=== PATIENT | female | born 1955 | race Caucasian/White ===

== ENCOUNTER 2017-07-27 11:59 | Emergency (ER) | payer OTHER ==
[~2017-07-27 11:59] MED LIST: NALOXONE HCL 2 MG/2 ML SYR IVP ONE
--- NOTE | 2017-07-27 12:20 | EDPHY ---
H & P Stated Complaint: headache, fatigue, HTN Time Seen by Provider: 07/27/17 12:15 HPI/ROS: HPI: This is a 61-year-old female who presents with Chief Complaint: headache, fatigue, HTN Location: heart Quality: Elevated blood pressure Duration: 23 hr prior to arrival Signs and Symptoms: no shortness of breath at rest, no shortness of breath on exertion, no cough, no chest pain, no palpitations, no lower extremity edema, no wheezing, no orthopnea, no paroxysmal nocturnal dyspnea, no fever, no injury/ trauma, no hemoptysis, no carpal pedal spasms Timing: Daily Severity: [id number] Context: Patient reports that she has noted elevated blood pressures over the last week. She was skiing with cardiology PA today and felt lightheaded and fatigue with a dull aching headache. EMS was called as the PA was concerned about cardiac event even though patient denies chest pain. Reports weaning off hormone medication x1 week and stop taking her diclofenac today. Patient reports that she was [place] the [employer] [place] and became winded, with a frontal dull aching headache which is unusual for her. She then noted her systolic blood pressure to be in the 170. Yesterday it was in the 140. Risk factors include estrogen therapy, strong family history. Mother had coronary artery disease; bypass in her 70s and 80s. Reports recent yearly physical exam with normal cholesterol lipid levels. Does not take aspirin daily. Does state that she has had a tough 2 years with family deaths; multiple surgeries. Complains of bilateral knee soreness. Modifying Factors: None Comment: ROS: see HPI Constitutional: No fever, no chills, no weight loss Eyes: No blurred vision Respiratory: No shortness of breath, no cough Cardiovascular: No chest pain, no palpitations, no lower extremity edema Gastrointestinal: No nausea, no vomiting, no diarrhea Genitourinary: No dysuria Extremities: No myalgias Neurologic: No weakness, no numbness Skin: No rashes Hematologic: No bruising, no bleeding MEDICAL/SURGICAL/SOCIAL HISTORY: Medical history: Depression, arthritis Surgical history: L CORNELL, R Shoulder surgery. Social history: . Employed. CONSTITUTIONAL: Physically fit adult female, at bedside, awake and alert, no obvious distress HEENT: Atraumatic and normocephalic, PERRL, EOMI. Nares patent; no rhinorrhea; no nasal mucosal edema. Tympanic membranes clear. Oropharynx clear, no exudate and moist pink mucosa. Airway patent. No lymphadenopathy. No meningismus. No carotid bruits. Cardiovascular: Normal S1/S2, regular rate, regular rhythm, without murmur rub or gallop. PULMONARY/CHEST: Symmetrical and nontender. Clear to auscultation bilaterally. Good air movement. No accessory muscle usage. ABDOMEN: Soft, nondistended, nontender, no rebound, no guarding, no peritoneal signs, no masses or organomegaly. No CVAT. EXTREMITIES: 2/2 pulses, strength 5/5, no deformities, no clubbing, no cyanosis or edema. NEUROLOGICAL: no focal neuro deficits. GCS 15. SKIN: Warm and dry, no erythema. no rash. Good capillary refill. Source: Patient Exam Limitations: No limitations - Personal History Current Tetanus Diphtheria and Acellular Pertussis (TDAP): Yes - Medical/Surgical History Hx Asthma: No Hx Chronic Respiratory Disease: No Hx Diabetes: No Hx Cardiac Disease: No Hx Renal Disease: No Hx Cirrhosis: No Hx Alcoholism: No Hx HIV/AIDS: No Hx Splenectomy or Spleen Trauma: No Other PMH: depression, L CORNELL, R Shoulder surgery. - Social History Smoking Status: Never smoked Constitutional: Initial Vital Signs Temperature (C) 36.7 C 07/27/17 12:09 Heart Rate 68 07/27/17 12:09 Respiratory Rate 16 07/27/17 12:09 Blood Pressure 177/97 H 07/27/17 12:09 O2 Sat (%) 98 07/27/17 12:09 O2 Delivery Mode Room Air Allergies/Adverse Reactions: phenobarbital Allergy (Verified 07/27/17 12:08) Home Medications: Medication Instructions Recorded Diclofenac Sodium 07/27/17 Lexapro 07/27/17 Prempro 0.3 mg-1.5 mg Tablet 07/27/17 Medical Decision Making - Diagnostics EKG Interpretation: 12 lead EKG: Indication: Hypertension Rhythm: Normal sinus rhythm, rate 65 beats per minute [place]: Borderline left Intervals: Normal QRS: Normal ST segments: Normal T-waves: Normal INTERPRETATION: No acute ischemic changes The 12 lead EKG was interpreted by myself and with attending. Imaging Results: Imaging Impressions Chest X-Ray 07/27/17 12:15 Impression: Normal heart size and pulmonary vascularity. ED Course/Re-evaluation: EKG, chest x-ray, labs ordered. Placed on electronic device monitor. EKG at bedside shows normal sinus rhythm, left axis deviation. No acute ischemic changes/arrhythmia. Vital signs reviewed upon arrival; blood pressure noted to be 177/97 Asymptomatic currently; gave aspirin 324 mg, Percocet and IV Ativan 0.5 mg 1305: Labs reviewed. No signs of leukocytosis/anemia/SHASTA/elevated LFTs/ electrolyte imbalance/VTE/CHF/ACS. CXR my read via PAC shows no effusion, no opacity, no pneumothorax, no widened mediastinum Heart score=3; low risk for 6 week major adverse cardiac event. 1500: second troponin negative Discussed options with patient; admit with observation versus outpatient cardiology follow-up. Patient prefers to follow up outpatient. Blood pressure at discharge was 149/92 This patient was seen under the supervision of my secondary supervising physician. I evaluated care for this patient independently. Differential Diagnosis: Chest pain including but not limited to myocardial ischemia, pulmonary embolus, chest wall pain, pleural inflammation and pulmonary infectious causes. - Data Points Laboratory Results: Laboratory Results 07/27/17 12:00 07/27/17 12:00 07/27/17 07/27/17 07/27/17 14:55 12:00 12:00 WBC RBC Hgb Hct MCV MCH MCHC RDW Plt Count MPV Neut % (Auto) Lymph % (Auto) Garden % (Auto) Eos % (Auto) Baso % (Auto) Nucleat RBC Rel Count Absolute Neuts (auto) Absolute Lymphs (auto) Absolute Monos (auto) Absolute Eos (auto) Absolute Basos (auto) Absolute Nucleated RBC Immature Gran % Immature Gran # D-Dimer 0.48 ug/mLFEU ug/mLFEU (0.00-0.50) Sodium 141 mEq/L mEq/L (135-145) Potassium 4.4 mEq/L mEq/L (3.5-5.2) Chloride 106 mEq/L mEq/L (97-110) Carbon Dioxide 26 mEq/l mEq/l (22-31) Anion Gap 9 mEq/L mEq/L (8-16) BUN 15 mg/dL mg/dL (7-23) Creatinine 0.8 mg/dL mg/dL (0.6-1.0) Estimated GFR > 60 Glucose 81 mg/dL mg/dL (70-100) Calcium 9.4 mg/dL mg/dL (8.5-10.4) Troponin I < 0.012 ng/mL ng/mL < 0.012 ng/mL ng/mL (0.000-0.034) (0.000-0.034) NT-Pro-B Natriuret Pep 207 pg/mL H pg/mL (0-125) 07/27/17 12:00 WBC 5.96 10^3/uL 10^3/uL (3.80-9.50) RBC 4.81 10^6/uL 10^6/uL (4.18-5.33) Hgb 15.1 g/dL g/dL (12.6-16.3) Hct 45.4 % % (38.0-47.0) MCV 94.4 fL fL (81.5-99.8) MCH 31.4 pg pg (27.9-34.1) MCHC 33.3 g/dL g/dL (32.4-36.7) RDW 13.4 % % (11.5-15.2) Plt Count 253 10^3/uL 10^3/uL (150-400) MPV 9.9 fL fL (8.7-11.7) Neut % (Auto) 62.4 % % (39.3-74.2) Lymph % (Auto) 30.5 % % (15.0-45.0) Garden % (Auto) 5.4 % % (4.5-13.0) Eos % (Auto) 0.8 % % (0.6-7.6) Baso % (Auto) 0.7 % % (0.3-1.7) Nucleat RBC Rel Count 0.0 % % (0.0-0.2) Absolute Neuts (auto) 3.72 10^3/uL 10^3/uL (1.70-6.50) Absolute Lymphs (auto) 1.82 10^3/uL 10^3/uL (1.00-3.00) Absolute Monos (auto) 0.32 10^3/uL 10^3/uL (0.30-0.80) Absolute Eos (auto) 0.05 10^3/uL 10^3/uL (0.03-0.40) Absolute Basos (auto) 0.04 10^3/uL 10^3/uL (0.02-0.10) Absolute Nucleated RBC 0.00 10^3/uL 10^3/uL (0-0.01) Immature Gran % 0.2 % % (0.0-1.1) Immature Gran # 0.01 10^3/uL 10^3/uL (0.00-0.10) D-Dimer Sodium Potassium Chloride Carbon Dioxide Anion Gap BUN Creatinine Estimated GFR Glucose Calcium Troponin I NT-Pro-B Natriuret Pep Medications Given: Discontinued Medications Aspirin (Aspirin) 324 mg PO EDNOW ONE Stop: 07/27/17 12:38 Last Admin: 07/27/17 12:44 Dose: 324 mg Lorazepam (Ativan Injection) 0.5 mg IVP EDNOW ONE Stop: 07/27/17 12:38 Last Admin: 07/27/17 12:44 Dose: 0.5 mg Oxycodone/Acetaminophen (Percocet 5/325) 1 tab PO EDNOW ONE Stop: 07/27/17 12:38 Last Admin: 07/27/17 12:44 Dose: 1 tab Departure - Departure Disposition: Home, Routine, Self-Care Clinical Impression: Elevated blood pressure reading Condition: Good Instructions: Low-Sodium Diet (ED), Hypertension (ED) Additional Instructions: Please limit salt in your diet to 2 grams daily. Continue to take blood pressure daily at the same time in the morning. Follow up with PCP in 5-7 days to discuss elevated blood pressure readings and determine if blood pressure medication needs to be started. Follow up with cardiology in 1-2 weeks for cardiac risk assessment and determine if need for cardiac stress reading. Return to the ER immediately if you experience new, continued or worsened chest pain, chest pain that radiates, chest pain accompanied by exertion or associated with shortness of breath, sweating, nausea, dizziness, back pain, or any other symptoms that concern you. Referrals: PCP Not In,Dictionary [Medical Doctor] - As per Instructions Ministerio Fulton MD [Medical Doctor] - As per Instructions
--- NOTE | 2017-07-27 12:28 | CPEKG ---
Heart Rate: 65 RR Interval: 923 P-R Interval: 156 QRSD Interval: 94 QT Interval: 452 QTC Interval: 470 P [place]: 32 QRS [place]: -40 T Wave [place]: 50 EKG Severity - OTHERWISE NORMAL ECG - EKG Impression: SINUS RHYTHM EKG Impression: LEFT AXIS DEVIATION Electronically Signed By: Vladimir Blanco 29-Jul-2017 11:57:24
[2017-07-27 12:29] LABS: PLATELET COUNT 253 10^3/uL (150-400)
[2017-07-27] MEDS ORDERED: LORazepam 2 MG/ML INJ IVP ONE (12:37)
[2017-07-27] MEDS ORDERED: ASPIRIN 81 MG CHEWABLE TAB PO ONE (12:37)
[2017-07-27] MEDS ORDERED: OXYCODONE/APAP 5/325 TAB PO ONE (12:37)
[2017-07-27 15:33] VITALS: BP 149/92
== END 2017-07-27 15:51 | disposition home or self-care (01) ==
LOC: EDUNIT#
DX: R03.0 Elevated blood-pressure reading, without diagnosis of hypertension (principal)
CPT/HCPCS: 96374; J2060; J2310